=== PATIENT | female | born 1980 | race Caucasian/White ===

== ENCOUNTER 2016-11-22 15:31 | Emergency (ER) | payer MEDICAID ==
[2016-11-22] MEDS ORDERED: PROPARACAINE 0.5% OPHTH DROPS 15 ML RIGHTEYE STA (16:28)
[2016-11-22] MEDS ORDERED: PROPARACAINE 0.5% OPHTH DROPS 15 ML ONE (16:30)
== END 2016-11-22 17:10 | disposition home or self-care (01) ==
DX: Z87.891 Personal history of nicotine dependence (principal); H01.003 Unspecified blepharitis right eye, unspecified eyelid; S05.01XA Injury of conjunctiva and corneal abrasion without foreign body, right eye, initial encounter; W50.0XXA Accidental hit or strike by another person, initial encounter
CPT/HCPCS: 99283; J3490

== ENCOUNTER 2017-01-03 11:06 | Outpatient (CLI) | payer MEDICAID | END 2017-01-03 11:07 | disposition home or self-care (01) | DX: Z13.9 Encounter for screening, unspecified (principal) ==